=== PATIENT | male | born 1950 | race Caucasian/White ===

== ENCOUNTER 2019-02-20 19:01 | Observation (INO) ==
[2019-02-20] MEDS ORDERED: 0.9 % Sodium Chloride 1,000 ML IVC ONE (19:51)
[2019-02-20 20:00] LABS: Basophils % 0.2 %; Hematocrit 45.2 % (37.5-50.1); Hemoglobin 15.4 g/dL (12.9-16.9); Immature Granulocytes % 0.4 % (0-4); Lymphocytes # 0.8 K/mcL (0.6-4.6); Lymphocytes % 4.7 %; Mean Corpuscular HGB Conc 34.1 g/dL (31.6-35.5); Mean Corpuscular Hemoglobin 30.6 pg (28.0-33.3); Mean Corpuscular Volume 89.9 fL (83.0-100.0); Mean Platelet Volume 10.6 fL (9.4-12.4); Monocytes # 1.7 K/mcL (0.0-1.3); Monocytes % 10.3 %; Neutrophils # 13.8 K/mcL (1.6-8.9); Platelet Count 175 K/mcL (140-400); Red Blood Count 5.03 M/mcL (4.19-5.50); Red Cell Distribution Width 13.4 % (11.5-14.5); Segmented Neutrophils % 84.4 %; White Blood Count 16.3 K/mcL (4.3-11.1)
[2019-02-20 20:07] LABS: INR 1.3; Prothrombin Time 14.2 Seconds (9.4-12.1)
[2019-02-20 20:10] LABS: Activated Partial Thrombo Time 29.5 Seconds (26.0-36.0)
[2019-02-20 20:20] LABS: BUN/Creatinine Ratio 31 (6-26); Blood Urea Nitrogen 29 mg/dL (8-23); Calcium 8.7 mg/dL (8.6-10.3); Carbon Dioxide 20 mEq/L (23-29); Chloride 104 mEq/L (98-107); Glucose 158 mg/dL (70-105); Osmolality,Calculated 291 (280-300); Potassium 3.6 mEq/L (3.5-5.1); Sodium 136 mEq/L (136-145); eGFR For African Americans > 60 (> 60); eGFR For Non-African Americans > 60 (> 60)
[2019-02-20 20:22] LABS: Troponin I < 0.03 ng/mL (< 0.04)
[2019-02-20 20:25] LABS: Bilirubin,Urine Negative (Negative); Blood,Urine Negative (Negative); Clarity,Urine Clear (Clear); Color,Urine Yellow (Yellow); Glucose,Urine (UA) Normal (Normal); Ketones,Urine Negative (Negative); Leukocyte Esterase,Urine Negative (Negative); Nitrite,Urine Negative (Negative); PH,Urine 6.5 pH Units (5.0-8.0); Protein,Urine Trace mg/dL (Neg-Trace); Specific Gravity,Urine 1.029 (1.010-1.025); Urobilinogen,Urine Normal (Normal)
[2019-02-20] MEDS ORDERED: Naloxone 0.4 MG/ML INJ IVP PRN (23:54)
[2019-02-21] MEDS: 0.9 % Sodium Chloride 1,000 ML IVC SCH ×2 (01:49→11:22)
[2019-02-21 02:18] LABS: Basophils # 0.1 K/mcL (0.0-0.2); Basophils % 0.3 %; Eosinophils % 0.1 %; Hematocrit 44.1 % (37.5-50.1); Hemoglobin 15.1 g/dL (12.9-16.9); Immature Granulocytes % 0.5 % (0-4); Lymphocytes # 1.3 K/mcL (0.6-4.6); Lymphocytes % 7.2 %; Mean Corpuscular HGB Conc 34.2 g/dL (31.6-35.5); Mean Corpuscular Hemoglobin 30.6 pg (28.0-33.3); Mean Corpuscular Volume 89.3 fL (83.0-100.0); Mean Platelet Volume 10.7 fL (9.4-12.4); Monocytes # 1.4 K/mcL (0.0-1.3); Monocytes % 7.9 %; Neutrophils # 14.7 K/mcL (1.6-8.9); Platelet Count 199 K/mcL (140-400); Red Blood Count 4.94 M/mcL (4.19-5.50); Red Cell Distribution Width 13.8 % (11.5-14.5); White Blood Count 17.4 K/mcL (4.3-11.1)
[2019-02-21 02:37] LABS: Alanine Aminotransferase 34 Units/L (7-52); Albumin 4.1 g/dL (3.5-5.7); Albumin/Globulin Ratio 1.3 (1.1-2.2); Alkaline Phosphatase 97 Units/L (34-104); Aspartate Amino Transferase 25 Units/L (13-39); BUN/Creatinine Ratio 29 (6-26); Bilirubin,Total 1.9 mg/dL (0.3-1.0); Blood Urea Nitrogen 25 mg/dL (8-23); Calcium 8.8 mg/dL (8.6-10.3); Carbon Dioxide 21 mEq/L (23-29); Chloride 104 mEq/L (98-107); Globulin 3.2 g/dL (2.4-3.5); Glucose 117 mg/dL (70-105); Osmolality,Calculated 287 (280-300); Potassium 3.8 mEq/L (3.5-5.1); Sodium 136 mEq/L (136-145); Total Protein 7.3 g/dL (6.4-8.9); eGFR For African Americans > 60 (> 60); eGFR For Non-African Americans > 60 (> 60)
[2019-02-21 02:53] LABS: Thyroid Stimulating Hormone 5.823 mcIU/mL (0.340-5.600)
[2019-02-21 02:59] LABS: Adenovirus Not Detected (Not Detect); Bordetella Pertussis Not Detected (Not Detect); Chlamydophila pneumoniae Not Detected (Not Detect); Coronavirus 229E Not Detected (Not Detect); Coronavirus HKU1 Not Detected (Not Detect); Coronavirus NL63 Not Detected (Not Detect); Coronavirus OC43 Not Detected (Not Detect); Human Metapneumovirus Not Detected (Not Detect); Human Rhinovirus/Enterovirus Not Detected (Not Detect); Influenza A Subtype 2009 H1 Not Detected (Not Detect); Influenza A Untypeable Not Detected (Not Detect); Influenza B Not Detected (Not Detect); Mycoplasma pneumoniae Not Detected (Not Detect); Parainfluenza Virus 1 Not Detected (Not Detect); Parainfluenza Virus 2 Not Detected (Not Detect); Parainfluenza Virus 3 Not Detected (Not Detect); Parainfluenza Virus 4 Not Detected (Not Detect); Respiratory Syncytial Virus Not Detected (Not Detect)
[2019-02-21] MEDS: Levothyroxine 25 MCG TABLET PO SCH (06:16)
[2019-02-21] MEDS ORDERED: Regadenoson 0.4 MG/5 ML SYRINGE IVP ONE (06:33)
[2019-02-21] MEDS ORDERED: Aspirin 325 MG TABLET PO ONE (07:39)
[2019-02-21] MEDS: Acetaminophen 325 MG TABLET PO PRN (07:51)
[2019-02-21] MEDS: valACYclovir 500 MG TABLET PO SCH ×3 (07:51→20:58)
[2019-02-21] MEDS: Aspirin Enteric Coated 81 MG Tablet PO SCH (07:58)
[2019-02-21] MEDS ORDERED: Isovue-370 500 ML BOTTLE IVP ONE (08:48)
[2019-02-21] MEDS: levoFLOXacin 750 MG/150 ML 750 MG/150 ML BAG IVPB SCH (11:22)
[2019-02-21] MEDS: Melatonin 3 MG TABLET PO PRN (20:58)
[2019-02-22] MEDS: 0.9 % Sodium Chloride 1,000 ML IVC SCH ×3 (00:28→14:50)
[2019-02-22 01:54] LABS: Hematocrit 37.3 % (37.5-50.1); Mean Corpuscular HGB Conc 34.3 g/dL (31.6-35.5); Mean Corpuscular Hemoglobin 30.5 pg (28.0-33.3); Mean Platelet Volume 10.5 fL (9.4-12.4); Platelet Count 149 K/mcL (140-400); Red Blood Count 4.19 M/mcL (4.19-5.50); Red Cell Distribution Width 13.9 % (11.5-14.5); White Blood Count 16.4 K/mcL (4.3-11.1)
[2019-02-22 01:57] LABS: Alanine Aminotransferase 20 Units/L (7-52); Albumin 2.9 g/dL (3.5-5.7); Albumin/Globulin Ratio 1.2 (1.1-2.2); Alkaline Phosphatase 70 Units/L (34-104); Aspartate Amino Transferase 15 Units/L (13-39); BUN/Creatinine Ratio 29 (6-26); Bilirubin,Total 1.6 mg/dL (0.3-1.0); Blood Urea Nitrogen 20 mg/dL (8-23); Calcium 7.8 mg/dL (8.6-10.3); Carbon Dioxide 21 mEq/L (23-29); Chloride 109 mEq/L (98-107); Globulin 2.5 g/dL (2.4-3.5); Glucose 124 mg/dL (70-105); Osmolality,Calculated 286 (280-300); Potassium 3.7 mEq/L (3.5-5.1); Sodium 136 mEq/L (136-145); Total Protein 5.4 g/dL (6.4-8.9); eGFR For African Americans > 60 (> 60); eGFR For Non-African Americans > 60 (> 60)
[2019-02-22 02:01] LABS: Hemoglobin 12.8 g/dL (12.9-16.9)
[2019-02-22] MEDS: Acetaminophen 325 MG TABLET PO PRN (02:49)
[2019-02-22] MEDS: Levothyroxine 25 MCG TABLET PO SCH (05:25)
[2019-02-22] MEDS: levoFLOXacin 750 MG/150 ML 750 MG/150 ML BAG IVPB SCH (08:08)
[2019-02-22] MEDS: valACYclovir 500 MG TABLET PO SCH ×3 (08:09→20:21)
[2019-02-22] MEDS: Aspirin Enteric Coated 81 MG Tablet PO SCH (08:09)
[2019-02-22] MEDS: Melatonin 3 MG TABLET PO PRN (20:22)
[2019-02-23] MEDS: 0.9 % Sodium Chloride 1,000 ML IVC SCH (00:18)
[2019-02-23] MEDS: Acetaminophen 325 MG TABLET PO PRN (00:22)
[2019-02-23 04:02] LABS: Hematocrit 38.5 % (37.5-50.1); Hemoglobin 13.2 g/dL (12.9-16.9); Mean Corpuscular HGB Conc 34.3 g/dL (31.6-35.5); Mean Corpuscular Hemoglobin 30.3 pg (28.0-33.3); Mean Corpuscular Volume 88.3 fL (83.0-100.0); Mean Platelet Volume 10.8 fL (9.4-12.4); Platelet Count 168 K/mcL (140-400); Red Blood Count 4.36 M/mcL (4.19-5.50); Red Cell Distribution Width 13.8 % (11.5-14.5); White Blood Count 10.5 K/mcL (4.3-11.1)
[2019-02-23 04:14] LABS: Alanine Aminotransferase 32 Units/L (7-52); Albumin 2.9 g/dL (3.5-5.7); Albumin/Globulin Ratio 1.2 (1.1-2.2); Alkaline Phosphatase 70 Units/L (34-104); Aspartate Amino Transferase 25 Units/L (13-39); BUN/Creatinine Ratio 23 (6-26); Bilirubin,Total 0.8 mg/dL (0.3-1.0); Blood Urea Nitrogen 16 mg/dL (8-23); Calcium 7.8 mg/dL (8.6-10.3); Carbon Dioxide 20 mEq/L (23-29); Chloride 111 mEq/L (98-107); Globulin 2.4 g/dL (2.4-3.5); Glucose 126 mg/dL (70-105); Osmolality,Calculated 289 (280-300); Potassium 3.8 mEq/L (3.5-5.1); Sodium 138 mEq/L (136-145); Total Protein 5.3 g/dL (6.4-8.9); eGFR For African Americans > 60 (> 60); eGFR For Non-African Americans > 60 (> 60)
[2019-02-23] MEDS: Levothyroxine 25 MCG TABLET PO SCH (05:18)
[2019-02-23 07:23] VITALS: BP 132/76
[2019-02-23] MEDS: levoFLOXacin 750 MG/150 ML 750 MG/150 ML BAG IVPB SCH (07:50)
[2019-02-23] MEDS: valACYclovir 500 MG TABLET PO SCH (07:51)
[2019-02-23] MEDS: Aspirin Enteric Coated 81 MG Tablet PO SCH (07:51)
== END 2019-02-23 11:33 | disposition home or self-care (01) ==
LOC: 3BNU 19:01 → EMEROOARM 19:01 → SUATTDRO 22:54 → 3BNU 23:11
PROVIDERS: ADMIT Internal Medicine; ATTEND Internal Medicine